=== PATIENT | female | born 1990 | race Caucasian/White ===

== ENCOUNTER 2016-11-10 23:14 | Emergency (ER) | payer MEDICAID ==
[~2016-11-10] VITALS: Ht 154.9 cm; Wt 83.1 kg
[~2016-11-10 23:14] MED LIST: DOCU100T3 PO; IBUP-1222 PO; MAG355OR15 PO; MULT-257 PO; OXYC-302 PO; PREN1TAB47 PO
[2016-11-10 23:16] VITALS: BP 123/80
== END 2016-11-11 00:37 | disposition home or self-care (01) ==
LOC: ED 23:59
DX: N64.4 Mastodynia (principal)
CPT/HCPCS: 99283

== ENCOUNTER 2017-02-01 18:00 | Emergency (ER) | payer MEDICAID ==
[~2017-02-01] VITALS: Ht 154.9 cm; Wt 84.9 kg
[2017-02-01 18:01] VITALS: BP 128/78
[2017-02-01] MEDS ORDERED: SODIUM CHLORIDE 0.9% 1,000 ML IV ONE (18:13)
[2017-02-01] MEDS ORDERED: SODIUM CHLORIDE 0.9% 1,000ML IVBOLUS ONE (18:30)
[2017-02-01] MEDS ORDERED: ONDANSETRON 2MG/ML, 2ML IVPush ONE (18:30)
[2017-02-01] MEDS ORDERED: FAMOTIDINE 20 MG/2 ML IVP ONE (18:30)
[2017-02-01 19:30] LABS: ASPARTATE AMINO TRANSFERASE 14 U/L (15-37); BLOOD UREA NITROGEN 21 mg/dL (7-18)
[2017-02-01] MEDS ORDERED: MAALOX/HYOSCYAMINE/LIDOCAINE 45 ML BTL PO ONE (19:30)
[2017-02-01 19:36] LABS: HEMOGLOBIN 15.6 g/dL (11.7-16.4)
[2017-02-01] MEDS ORDERED: FAMOTIDINE 20 MG/2 ML ONE (19:40)
[2017-02-01] MEDS ORDERED: MAALOX/HYOSCYAMINE/LIDOCAINE 45 ML BTL ONE (19:40)
[2017-02-01] MEDS ORDERED: ONDANSETRON 2MG/ML, 2ML ONE (19:40)
[2017-02-01 21:29] LABS: PATH.CAST-FLAG NOT PRESENT; SPERM-FLAG NOT PRESENT; SRC-FLAG NOT PRESENT; XTAL-FLAG NOT PRESENT; YLC-FLAG NOT PRESENT
== END 2017-02-01 22:27 | disposition home or self-care (01) ==
LOC: ED 21:11
DX: K29.00 Acute gastritis without bleeding (principal); Z98.890 Other specified postprocedural states
CPT/HCPCS: 36415; 71010; 76700; 80053; 81001; 83690; 84703; 85025; 87086; 93005; 96361; 96374; 96375; 99285; J2405; J7030; S0028

== ENCOUNTER 2017-05-23 20:10 | Emergency (ER) | payer MEDICAID ==
[~2017-05-23] VITALS: Ht 154.9 cm; Wt 88.7 kg
[2017-05-24 01:37] VITALS: BP 119/74
== END 2017-05-24 01:38 | disposition home or self-care (01) ==
LOC: ED 23:38
DX: R07.89 Other chest pain (principal); B02.29 Other postherpetic nervous system involvement; R21 Rash and other nonspecific skin eruption
CPT/HCPCS: 71020; 93005; 99284